=== PATIENT | male | born 1955 | race Caucasian/White ===

== ENCOUNTER 2017-02-11 17:04 | Emergency (ER) | payer MEDICARE ==
[~2017-02-11] VITALS: Ht 203.2 cm; Wt 120.0 kg
[2017-02-11 18:30] LABS: HEMOGLOBIN 16.7 g/dL (13.7-18.0)
[2017-02-11 18:39] LABS: BLOOD UREA NITROGEN 13 mg/dL (7-18)
[2017-02-11 18:42] LABS: ASPARTATE AMINO TRANSFERASE 22 U/L (15-37)
[2017-02-11] MEDS ORDERED: OMNIPAQUE 350 MG/ML, 100ML BOTTLE ONE (22:00)
[2017-02-11] MEDS ORDERED: FUROSEMIDE 40 MG/4 ML IV ONE (23:30)
[2017-02-11] MEDS ORDERED: FUROSEMIDE 40 MG/4 ML ONE (23:55)
[2017-02-12 00:31] VITALS: BP 126/78
== END 2017-02-12 00:38 | disposition home or self-care (01) ==
LOC: ED 22:37
DX: I11.0 Hypertensive heart disease with heart failure (principal); I50.1 Left ventricular failure, unspecified; L97.919 Non-pressure chronic ulcer of unspecified part of right lower leg with unspecified severity; E11.9 Type 2 diabetes mellitus without complications; J45.909 Unspecified asthma, uncomplicated; Z95.1 Presence of aortocoronary bypass graft
CPT/HCPCS: 36415; 71020; 71275; 73590; 80053; 82962; 85025; 93005; 96374; 99285; J1940; Q9967

== ENCOUNTER 2017-03-05 01:02 | Inpatient (IN) | payer MEDICARE ==
[~2017-03-05] VITALS: Ht 203.2 cm; Wt 104.2 kg
[2017-03-05] MEDS ORDERED: INSU100I11 SQ-INSULIN (02:00)
[2017-03-05] MEDS ORDERED: HYDR12.53 PO (02:00)
[2017-03-05] MEDS ORDERED: ALLO300T PO (02:00)
[2017-03-05] MEDS ORDERED: CARV25TA12 PO (02:00)
[2017-03-05] MEDS ORDERED: ONDANSETRON 2MG/ML, 2ML ONE ×2 (02:25→19:02)
[2017-03-05] MEDS ORDERED: HYDROmorphone 1 MG/ML, 1ML ONE (02:25)
[2017-03-05] MEDS ORDERED: SODIUM CHLORIDE 0.9% 1,000ML IVBOLUS ONE (02:30)
[2017-03-05] MEDS ORDERED: ONDANSETRON 2MG/ML, 2ML IVPush ONE (02:30)
[2017-03-05] MEDS ORDERED: HYDROmorphone 1 MG/ML, 1ML IVPush PRN ×2 (02:30→04:00)
[2017-03-05 02:53] LABS: BLOOD UREA NITROGEN 23 mg/dL (7-18)
[2017-03-05] MEDS ORDERED: CLINDAMYCIN PMX 600MG/50ML 50 ML ONE (03:38)
[2017-03-05] MEDS ORDERED: SODIUM CHLORIDE 0.9% 1,000 ML IV ONE (03:42)
[2017-03-05] MEDS ORDERED: CLINDAMYCIN PMX 600MG/50ML 50 ML IV ONE (04:00)
[2017-03-05] MEDS ORDERED: ONDANSETRON 2MG/ML, 2ML IVPush PRN (04:00)
[2017-03-05 04:28] VITALS: BP 103/72
[2017-03-05] MEDS ORDERED: VANCOMYCIN PER PHARMACY MC PRN (04:30)
[2017-03-05] MEDS ORDERED: VANCOMYCIN PMX 1GM/200ML 200 ML IV ONE (04:30)
[2017-03-05] MEDS ORDERED: ONDANSETRON 2MG/ML, 2ML IVP PRN (04:30)
[2017-03-05] MEDS ORDERED: ACETAMINOPHEN 325 MG TABLET PO PRN (04:30)
[2017-03-05] MEDS ORDERED: ENALAPRILAT 1.25 MG/ML, 2ML IVPush PRN (04:30)
[2017-03-05] MEDS ORDERED: BISACODYL 10 MG SUPP PR PRN (04:30)
[2017-03-05] MEDS ORDERED: PHARMACOKINETIC MONITORING MC PRN (05:00)
[2017-03-05] MEDS: PIPERACILLIN/TAZO/PMX 3.375GM 50 ML IV SCH ×4 (05:46→23:52)
[2017-03-05] MEDS: HEPARIN 5,000 UNITS/ML, 1ML SQ SCH ×3 (05:46→23:18)
[2017-03-05] MEDS: HYDROmorphone 2 MG/ML, 1ML IV PRN ×2 (05:56→10:55)
[2017-03-05] MEDS: OXYcodone IR 5MG TABLET PO PRN ×4 (05:56→23:18)
[2017-03-05] MEDS ORDERED: VANCOMYCIN 2,000 MG in SODIUM CHLORIDE 0.9% 500 ML IV ONE (06:00)
[2017-03-05 06:50] VITALS: BP 104/73
[2017-03-05 06:58] LABS: C-REACTIVE PROTEIN, QUANT 4.1 mg/dL (0.02-0.49)
[2017-03-05] MEDS: ALLOPURINOL 300 MG TABLET PO SCH (09:27)
[2017-03-05] MEDS: SENNA/DOCUSATE TABLET PO SCH (09:27)
[2017-03-05] MEDS: INSULIN ASPART 100 UNITS/ML, PEN SQ-INSULIN SCH ×4 (09:28→21:00)
[2017-03-05] MEDS ORDERED: ATEN25TA PO (09:32)
[2017-03-05 11:51] LABS: BLD PARASITE SMEAR NO ORGANISMS SEEN (NONE SEEN); MALARIA RAPID DIAGNOSTIC TEST Negative (Negative)
[2017-03-05 12:10] LABS: BINAX NOW MALARIA OBC PASS (PASS)
[2017-03-05 12:40] VITALS: BP 104/70
[2017-03-05 17:24] VITALS: BP 113/81
[2017-03-05] MEDS ORDERED: BUPIVACAINE/PF 0.5% ONE (18:48)
[2017-03-05] MEDS ORDERED: BUPIVACAINE/PF 0.25% ONE (18:48)
[2017-03-05] MEDS ORDERED: PROPOFOL 10 MG/ML, 20ML ONE (19:02)
[2017-03-05] MEDS ORDERED: SUCCINYLCHOLINE 20 MG/ML, 10ML ONE (19:02)
[2017-03-05 20:15] LABS: CELLS COUNTED 8; DILUTION 1; WBC SQUARES COUNTED 10
[2017-03-05 21:00] VITALS: BP 102/68
[2017-03-06 01:30] VITALS: BP 112/70
[2017-03-06 04:00] VITALS: BP 99/74
[2017-03-06] MEDS: OXYcodone IR 5MG TABLET PO PRN ×4 (05:25→23:51)
[2017-03-06] MEDS: PIPERACILLIN/TAZO/PMX 3.375GM 50 ML IV SCH ×4 (05:27→23:51)
[2017-03-06] MEDS: HEPARIN 5,000 UNITS/ML, 1ML SQ SCH ×4 (06:05→23:51)
[2017-03-06 06:22] LABS: ASPARTATE AMINO TRANSFERASE 17 U/L (15-37); BLOOD UREA NITROGEN 18 mg/dL (7-18)
[2017-03-06] MEDS: VANCOMYCIN 2,000 MG in SODIUM CHLORIDE 0.9% 500 ML IV SCH (06:28)
[2017-03-06 06:51] VITALS: BP 91/64
[2017-03-06] MEDS: INSULIN ASPART 100 UNITS/ML, PEN SQ-INSULIN SCH ×4 (06:58→21:00)
[2017-03-06] MEDS: ALLOPURINOL 300 MG TABLET PO SCH (09:42)
[2017-03-06] MEDS: SENNA/DOCUSATE TABLET PO SCH (09:42)
[2017-03-06 12:59] VITALS: BP 107/69
[2017-03-06] MEDS ORDERED: GADOBUTROL 10 MMOL/10 ML PFS ONE (13:56)
[2017-03-06 22:29] VITALS: BP 106/58
[2017-03-07 02:00] VITALS: BP 112/75
[2017-03-07] MEDS: OXYcodone IR 5MG TABLET PO PRN ×3 (04:14→22:44)
[2017-03-07 06:10] LABS: BLOOD UREA NITROGEN 16 mg/dL (7-18)
[2017-03-07] MEDS: VANCOMYCIN 2,000 MG in SODIUM CHLORIDE 0.9% 500 ML IV SCH ×3 (06:11→19:29)
[2017-03-07] MEDS: PIPERACILLIN/TAZO/PMX 3.375GM 50 ML IV SCH ×3 (06:19→18:14)
[2017-03-07 06:20] LABS: ASPARTATE AMINO TRANSFERASE 20 U/L (15-37)
[2017-03-07] MEDS: INSULIN ASPART 100 UNITS/ML, PEN SQ-INSULIN SCH ×4 (07:00→22:44)
[2017-03-07] MEDS: ALLOPURINOL 300 MG TABLET PO SCH (08:55)
[2017-03-07 09:00] VITALS: BP 129/67
[2017-03-07] MEDS ORDERED: HEPARIN 5,000 UNITS/ML, 1ML IV ONE (09:00)
[2017-03-07] MEDS ORDERED: FUROSEMIDE 40 MG TABLET PO ONE (09:00)
[2017-03-07] MEDS: SENNA/DOCUSATE TABLET PO SCH (09:36)
[2017-03-07] MEDS: ASPIRIN 325 MG TABLET PO SCH (09:37)
[2017-03-07 10:01] VITALS: BP 113/78
[2017-03-07 10:12] LABS: IS PT STATUS REG ER OR PRE ER? NO
[2017-03-07] MEDS: HEPARIN 25,000 UNITS/500ML PMX 500 ML IV PRN (11:51)
[2017-03-07 15:03] LABS: IS PT STATUS REG ER OR PRE ER? NO
[2017-03-07] MEDS ORDERED: SILVER NITRATE STICK TP ONE (16:00)
[2017-03-07 16:13] VITALS: BP 109/76
[2017-03-07] MEDS: CARVEDILOL 3.125 MG TABLET PO SCH (17:26)
[2017-03-07] MEDS: HEPARIN 5,000 UNITS/ML, 1ML IV PRN (19:28)
[2017-03-07 19:42] VITALS: BP 108/70
[2017-03-07 20:37] LABS: IS PT STATUS REG ER OR PRE ER? NO
[2017-03-08] MEDS: PIPERACILLIN/TAZO/PMX 3.375GM 50 ML IV SCH ×4 (00:34→18:19)
[2017-03-08 01:49] VITALS: BP 102/72
[2017-03-08] MEDS: HEPARIN 5,000 UNITS/ML, 1ML IV PRN ×2 (02:23→09:44)
[2017-03-08] MEDS: OXYcodone IR 5MG TABLET PO PRN ×3 (02:49→21:32)
[2017-03-08] MEDS: HEPARIN 25,000 UNITS/500ML PMX 500 ML IV PRN ×2 (05:53→21:39)
[2017-03-08] MEDS: HYDROmorphone 2 MG/ML, 1ML IV PRN (06:03)
[2017-03-08 06:15] VITALS: BP 107/72
[2017-03-08] MEDS: ASPIRIN 325 MG TABLET PO SCH (06:26)
[2017-03-08] MEDS: VANCOMYCIN 2,000 MG in SODIUM CHLORIDE 0.9% 500 ML IV SCH ×2 (07:00→13:26)
[2017-03-08] MEDS: INSULIN ASPART 100 UNITS/ML, PEN SQ-INSULIN SCH ×4 (07:00→21:00)
[2017-03-08 07:51] LABS: BLOOD UREA NITROGEN 16 mg/dL (7-18)
[2017-03-08 08:30] VITALS: BP 100/66
[2017-03-08] MEDS: SENNA/DOCUSATE TABLET PO SCH (08:55)
[2017-03-08] MEDS ORDERED: DIPHENHYDRAMINE 25 MG CAPSULE ONE (08:59)
[2017-03-08] MEDS ORDERED: DIPHENHYDRAMINE 25 MG CAPSULE PO PRN (09:00)
[2017-03-08] MEDS: CARVEDILOL 3.125 MG TABLET PO SCH (09:04)
[2017-03-08] MEDS: ALLOPURINOL 300 MG TABLET PO SCH (09:39)
[2017-03-08] MEDS: IRBESARTAN 150 MG TABLET PO SCH (11:12)
[2017-03-08 16:00] VITALS: BP 107/73
[2017-03-08] MEDS ORDERED: CARVEDILOL 3.125 MG TABLET PO SCH (18:00)
[2017-03-08 19:51] VITALS: BP 89/62
[2017-03-09] MEDS: PIPERACILLIN/TAZO/PMX 3.375GM 50 ML IV SCH ×5 (00:54→23:31)
[2017-03-09 01:34] VITALS: BP 85/51
[2017-03-09] MEDS: OXYcodone IR 5MG TABLET PO PRN ×2 (01:52→21:22)
[2017-03-09] MEDS: HEPARIN 5,000 UNITS/ML, 1ML IV PRN ×2 (02:01→15:37)
[2017-03-09 05:29] LABS: BLOOD UREA NITROGEN 17 mg/dL (7-18)
[2017-03-09] MEDS: ASPIRIN 325 MG TABLET PO SCH (06:20)
[2017-03-09] MEDS: CARVEDILOL 3.125 MG TABLET PO SCH ×3 (06:20→21:18)
[2017-03-09 06:22] VITALS: BP 94/65
[2017-03-09 06:47] VITALS: BP 113/99
[2017-03-09] MEDS: VANCOMYCIN 2,000 MG in SODIUM CHLORIDE 0.9% 500 ML IV SCH (08:37)
[2017-03-09] MEDS: ALLOPURINOL 300 MG TABLET PO SCH (08:41)
[2017-03-09] MEDS: SENNA/DOCUSATE TABLET PO SCH (08:41)
[2017-03-09] MEDS: IRBESARTAN 150 MG TABLET PO SCH (08:41)
[2017-03-09] MEDS: INSULIN ASPART 100 UNITS/ML, PEN SQ-INSULIN SCH ×4 (08:45→21:17)
[2017-03-09] MEDS: HEPARIN 25,000 UNITS/500ML PMX 500 ML IV PRN ×2 (09:59→21:17)
[2017-03-09 13:02] VITALS: BP 90/59
[2017-03-09 16:20] VITALS: BP 99/65
[2017-03-09 19:21] VITALS: BP 122/85
[2017-03-09] MEDS: HYDROmorphone 2 MG/ML, 1ML IV PRN (23:32)
[2017-03-10 01:15] VITALS: BP 98/63
[2017-03-10] MEDS: OXYcodone IR 5MG TABLET PO PRN ×4 (01:36→22:30)
[2017-03-10] MEDS: HYDROmorphone 2 MG/ML, 1ML IV PRN (03:02)
[2017-03-10] MEDS: PIPERACILLIN/TAZO/PMX 3.375GM 50 ML IV SCH ×3 (05:36→18:04)
[2017-03-10] MEDS: ASPIRIN 325 MG TABLET PO SCH (05:36)
[2017-03-10] MEDS: CARVEDILOL 3.125 MG TABLET PO SCH (05:36)
[2017-03-10 06:58] VITALS: BP 91/58
[2017-03-10] MEDS: HEPARIN 25,000 UNITS/500ML PMX 500 ML IV PRN ×2 (08:29→18:17)
[2017-03-10] MEDS: INSULIN ASPART 100 UNITS/ML, PEN SQ-INSULIN SCH ×4 (08:32→22:39)
[2017-03-10] MEDS: SENNA/DOCUSATE TABLET PO SCH (10:17)
[2017-03-10] MEDS: ALLOPURINOL 300 MG TABLET PO SCH (10:24)
[2017-03-10] MEDS: IRBESARTAN 150 MG TABLET PO SCH (10:25)
[2017-03-10 12:30] VITALS: BP 92/58
[2017-03-10] MEDS: CARVEDILOL 6.25 MG TABLET PO SCH (18:00)
[2017-03-10 19:00] VITALS: BP 102/71
[2017-03-11] MEDS: PIPERACILLIN/TAZO/PMX 3.375GM 50 ML IV SCH ×3 (00:23→12:00)
[2017-03-11 00:40] VITALS: BP 100/60
[2017-03-11] MEDS: OXYcodone IR 5MG TABLET PO PRN ×4 (02:34→20:59)
[2017-03-11] MEDS: HEPARIN 25,000 UNITS/500ML PMX 500 ML IV PRN ×2 (04:59→19:31)
[2017-03-11] MEDS: CARVEDILOL 6.25 MG TABLET PO SCH ×2 (06:00→16:42)
[2017-03-11] MEDS: ASPIRIN 325 MG TABLET PO SCH (06:47)
[2017-03-11] MEDS: SENNA/DOCUSATE TABLET PO SCH (08:08)
[2017-03-11 08:09] VITALS: BP 103/74
[2017-03-11] MEDS: ALLOPURINOL 300 MG TABLET PO SCH (08:18)
[2017-03-11] MEDS: IRBESARTAN 150 MG TABLET PO SCH (08:18)
[2017-03-11] MEDS: INSULIN ASPART 100 UNITS/ML, PEN SQ-INSULIN SCH ×4 (08:19→20:41)
[2017-03-11 13:05] VITALS: BP 114/72
[2017-03-11] MEDS: WARFARIN MODERAT DOSE PROTOCOL XX SCH (14:22)
[2017-03-11] MEDS ORDERED: WARFARIN 7.5 MG TABLET PO-COUM ONE (18:30)
[2017-03-11] MEDS ORDERED: ARTIFICIAL TEARS OPHTH SOLN 15ML EACHEYE PRN (20:30)
[2017-03-11 20:31] VITALS: BP 107/69
[2017-03-11] MEDS: AMOXICILLIN/CLAV 875-125MG TABLET PO SCH (20:37)
[2017-03-12] MEDS: OXYcodone IR 5MG TABLET PO PRN ×3 (00:27→20:22)
[2017-03-12 01:14] VITALS: BP 96/59
[2017-03-12 05:30] VITALS: BP 97/66
[2017-03-12] MEDS: HEPARIN 25,000 UNITS/500ML PMX 500 ML IV PRN ×2 (05:31→17:02)
[2017-03-12] MEDS: ASPIRIN 325 MG TABLET PO SCH (05:32)
[2017-03-12] MEDS: CARVEDILOL 6.25 MG TABLET PO SCH ×2 (05:35→17:02)
[2017-03-12 06:10] LABS: BLOOD UREA NITROGEN 13 mg/dL (7-18)
[2017-03-12] MEDS: INSULIN ASPART 100 UNITS/ML, PEN SQ-INSULIN SCH ×4 (07:00→20:22)
[2017-03-12 07:50] VITALS: BP 103/68
[2017-03-12] MEDS: SENNA/DOCUSATE TABLET PO SCH (09:00)
[2017-03-12] MEDS: ALLOPURINOL 300 MG TABLET PO SCH (09:46)
[2017-03-12] MEDS: AMOXICILLIN/CLAV 875-125MG TABLET PO SCH ×2 (09:46→20:13)
[2017-03-12] MEDS: IRBESARTAN 150 MG TABLET PO SCH (09:47)
[2017-03-12] MEDS: WARFARIN MODERAT DOSE PROTOCOL XX SCH (11:38)
[2017-03-12 13:16] VITALS: BP 92/53
[2017-03-12] MEDS ORDERED: WARFARIN 7.5 MG TABLET PO-COUM ONE (18:00)
[2017-03-12 19:04] VITALS: BP 104/74
[2017-03-13 00:57] VITALS: BP 107/74
[2017-03-13] MEDS: OXYcodone IR 5MG TABLET PO PRN ×4 (01:04→21:17)
[2017-03-13] MEDS: HEPARIN 25,000 UNITS/500ML PMX 500 ML IV PRN ×2 (02:34→12:25)
[2017-03-13] MEDS: ASPIRIN 325 MG TABLET PO SCH (06:20)
[2017-03-13] MEDS: CARVEDILOL 6.25 MG TABLET PO SCH ×2 (06:20→17:48)
[2017-03-13 06:30] VITALS: BP 115/80
[2017-03-13] MEDS: IRBESARTAN 150 MG TABLET PO SCH (08:35)
[2017-03-13] MEDS: INSULIN ASPART 100 UNITS/ML, PEN SQ-INSULIN SCH ×4 (08:36→21:26)
[2017-03-13] MEDS: ALLOPURINOL 300 MG TABLET PO SCH (08:36)
[2017-03-13] MEDS: AMOXICILLIN/CLAV 875-125MG TABLET PO SCH ×2 (08:37→21:17)
[2017-03-13] MEDS: SENNA/DOCUSATE TABLET PO SCH (08:37)
[2017-03-13] MEDS: HYDROmorphone 2 MG/ML, 1ML IV PRN (08:52)
[2017-03-13] MEDS: WARFARIN MODERAT DOSE PROTOCOL XX SCH (11:51)
[2017-03-13 13:21] VITALS: BP 114/80
[2017-03-13] MEDS: CIPROFLOXACIN OPHTH SOLN 0.3%, 5ML EACHEYE SCH ×5 (16:00→22:00)
[2017-03-13 17:47] VITALS: BP 112/77
[2017-03-13] MEDS ORDERED: WARFARIN 5 MG TABLET PO-COUM ONE (18:00)
[2017-03-13 18:52] VITALS: BP 90/67
[2017-03-14] MEDS: HEPARIN 25,000 UNITS/500ML PMX 500 ML IV PRN ×3 (01:27→23:46)
[2017-03-14 02:23] VITALS: BP 106/68
[2017-03-14] MEDS: OXYcodone IR 5MG TABLET PO PRN ×4 (02:37→22:14)
[2017-03-14] MEDS: ASPIRIN 325 MG TABLET PO SCH (05:56)
[2017-03-14] MEDS: CARVEDILOL 6.25 MG TABLET PO SCH ×2 (05:56→18:15)
[2017-03-14 06:37] LABS: ANTI-Xa-UNFRACTIONATED HEP 0.35 IU/mL (0.30-0.70)
[2017-03-14 06:48] VITALS: BP 94/60
[2017-03-14] MEDS: INSULIN ASPART 100 UNITS/ML, PEN SQ-INSULIN SCH ×4 (07:00→21:42)
[2017-03-14] MEDS ORDERED: REGADENOSON 0.4 MG/5 ML SYRINGE ONE (08:42)
[2017-03-14] MEDS: CIPROFLOXACIN OPHTH SOLN 0.3%, 5ML EACHEYE SCH ×8 (11:52→22:16)
[2017-03-14] MEDS: ALLOPURINOL 300 MG TABLET PO SCH (11:53)
[2017-03-14] MEDS: IRBESARTAN 150 MG TABLET PO SCH (11:53)
[2017-03-14] MEDS: SENNA/DOCUSATE TABLET PO SCH (11:53)
[2017-03-14] MEDS: AMOXICILLIN/CLAV 875-125MG TABLET PO SCH ×2 (11:53→21:42)
[2017-03-14] MEDS: WARFARIN MODERAT DOSE PROTOCOL XX SCH (12:01)
[2017-03-14 12:59] VITALS: BP 102/73
[2017-03-14] MEDS ORDERED: WARFARIN 7.5 MG TABLET PO-COUM SCH (18:00)
[2017-03-14 18:52] VITALS: BP 95/64
[2017-03-15 01:58] VITALS: BP 97/61
[2017-03-15] MEDS: OXYcodone IR 5MG TABLET PO PRN ×3 (03:02→20:47)
[2017-03-15] MEDS: ASPIRIN 325 MG TABLET PO SCH (06:23)
[2017-03-15] MEDS: CARVEDILOL 6.25 MG TABLET PO SCH (06:23)
[2017-03-15 06:43] LABS: ANTI-Xa-UNFRACTIONATED HEP 0.53 IU/mL (0.30-0.70)
[2017-03-15 06:54] VITALS: BP 106/67
[2017-03-15] MEDS: SENNA/DOCUSATE TABLET PO SCH (09:03)
[2017-03-15] MEDS: AMOXICILLIN/CLAV 875-125MG TABLET PO SCH ×2 (09:04→21:22)
[2017-03-15] MEDS: IRBESARTAN 150 MG TABLET PO SCH (09:04)
[2017-03-15] MEDS: ALLOPURINOL 300 MG TABLET PO SCH (09:04)
[2017-03-15] MEDS: INSULIN ASPART 100 UNITS/ML, PEN SQ-INSULIN SCH ×4 (09:09→21:22)
[2017-03-15] MEDS: CIPROFLOXACIN OPHTH SOLN 0.3%, 5ML EACHEYE SCH ×8 (09:09→22:00)
[2017-03-15] MEDS: HEPARIN 25,000 UNITS/500ML PMX 500 ML IV PRN ×2 (10:30→20:45)
[2017-03-15] MEDS: WARFARIN MODERAT DOSE PROTOCOL XX SCH (11:55)
[2017-03-15 13:06] VITALS: BP 101/68
[2017-03-15] MEDS ORDERED: WARFARIN 10 MG TABLET PO-COUM SCH (18:00)
[2017-03-15 20:00] VITALS: BP 98/63
[2017-03-15] MEDS: CARVEDILOL 3.125 MG TABLET PO SCH (21:23)
[2017-03-16 02:30] VITALS: BP 92/56
[2017-03-16] MEDS: ASPIRIN 325 MG TABLET PO SCH (06:00)
[2017-03-16 07:17] VITALS: BP 106/73
[2017-03-16] MEDS: HEPARIN 25,000 UNITS/500ML PMX 500 ML IV PRN ×2 (07:33→16:38)
[2017-03-16] MEDS: ALLOPURINOL 300 MG TABLET PO SCH (08:11)
[2017-03-16] MEDS: AMOXICILLIN/CLAV 875-125MG TABLET PO SCH ×2 (08:11→20:45)
[2017-03-16] MEDS: SENNA/DOCUSATE TABLET PO SCH (08:11)
[2017-03-16] MEDS: CARVEDILOL 3.125 MG TABLET PO SCH ×2 (08:11→20:45)
[2017-03-16] MEDS: CIPROFLOXACIN OPHTH SOLN 0.3%, 5ML EACHEYE SCH ×9 (08:11→22:00)
[2017-03-16] MEDS: IRBESARTAN 150 MG TABLET PO SCH (08:11)
[2017-03-16] MEDS: INSULIN ASPART 100 UNITS/ML, PEN SQ-INSULIN SCH ×4 (08:12→20:46)
[2017-03-16] MEDS: OXYcodone IR 5MG TABLET PO PRN ×4 (08:21→23:20)
[2017-03-16] MEDS: WARFARIN MODERAT DOSE PROTOCOL XX SCH (12:00)
[2017-03-16 14:16] VITALS: BP 102/68
[2017-03-16] MEDS: POLYETHYLENE GLYCOL 17 GM PACKET PO PRN (16:25)
[2017-03-16] MEDS ORDERED: WARFARIN 7.5 MG TABLET PO-COUM SCH (18:00)
[2017-03-16 21:05] VITALS: BP 93/64
[2017-03-17 00:51] VITALS: BP 97/67
[2017-03-17] MEDS: HYDROmorphone 2 MG/ML, 1ML IV PRN (01:00)
[2017-03-17] MEDS: HEPARIN 25,000 UNITS/500ML PMX 500 ML IV PRN ×3 (04:13→23:03)
[2017-03-17 06:13] LABS: ANTI-Xa-UNFRACTIONATED HEP 0.32 IU/mL (0.30-0.70)
[2017-03-17] MEDS: INSULIN ASPART 100 UNITS/ML, PEN SQ-INSULIN SCH ×4 (07:46→21:09)
[2017-03-17 07:51] VITALS: BP 95/62
[2017-03-17] MEDS: CIPROFLOXACIN OPHTH SOLN 0.3%, 5ML EACHEYE SCH ×8 (08:31→22:00)
[2017-03-17] MEDS: IRBESARTAN 150 MG TABLET PO SCH (08:32)
[2017-03-17] MEDS: AMOXICILLIN/CLAV 875-125MG TABLET PO SCH ×2 (08:32→21:09)
[2017-03-17] MEDS: ASPIRIN 325 MG TABLET PO SCH (08:33)
[2017-03-17] MEDS: CARVEDILOL 3.125 MG TABLET PO SCH ×2 (08:33→21:00)
[2017-03-17] MEDS: ALLOPURINOL 300 MG TABLET PO SCH (08:34)
[2017-03-17] MEDS: SENNA/DOCUSATE TABLET PO SCH (08:34)
[2017-03-17] MEDS: OXYcodone IR 5MG TABLET PO PRN ×3 (09:01→18:13)
[2017-03-17 11:44] LABS: BLOOD UREA NITROGEN 15 mg/dL (7-18)
[2017-03-17] MEDS: WARFARIN MODERAT DOSE PROTOCOL XX SCH (12:00)
[2017-03-17] MEDS: POLYETHYLENE GLYCOL 17 GM PACKET PO PRN (14:42)
[2017-03-17 15:58] VITALS: BP 100/70
[2017-03-17] MEDS ORDERED: WARFARIN 3 MG TABLET PO-COUM SCH (18:00)
[2017-03-17 18:45] VITALS: BP 97/63
[2017-03-17 21:08] VITALS: BP 97/64
[2017-03-18] MEDS: OXYcodone IR 5MG TABLET PO PRN (01:22)
[2017-03-18 02:27] VITALS: BP 102/75
[2017-03-18 05:36] LABS: ANTI-Xa-UNFRACTIONATED HEP 0.48 IU/mL (0.30-0.70)
[2017-03-18] MEDS: INSULIN ASPART 100 UNITS/ML, PEN SQ-INSULIN SCH ×4 (07:00→20:30)
[2017-03-18 07:45] VITALS: BP 92/61
[2017-03-18] MEDS: HEPARIN 25,000 UNITS/500ML PMX 500 ML IV PRN ×2 (09:56→20:25)
[2017-03-18] MEDS: CARVEDILOL 3.125 MG TABLET PO SCH ×2 (11:22→20:31)
[2017-03-18] MEDS: IRBESARTAN 150 MG TABLET PO SCH (11:23)
[2017-03-18] MEDS: ALLOPURINOL 300 MG TABLET PO SCH (11:23)
[2017-03-18] MEDS: SENNA/DOCUSATE TABLET PO SCH (11:23)
[2017-03-18] MEDS: ASPIRIN 325 MG TABLET PO SCH (11:23)
[2017-03-18] MEDS: AMOXICILLIN/CLAV 875-125MG TABLET PO SCH ×2 (11:23→20:30)
[2017-03-18] MEDS: CIPROFLOXACIN OPHTH SOLN 0.3%, 5ML EACHEYE SCH ×8 (11:23→22:00)
[2017-03-18 11:28] VITALS: BP 102/68
[2017-03-18 13:40] VITALS: BP 115/78
[2017-03-18] MEDS: WARFARIN MODERAT DOSE PROTOCOL XX SCH (17:25)
[2017-03-18] MEDS ORDERED: WARFARIN 3 MG TABLET PO-COUM ONE (18:00)
[2017-03-18 20:01] VITALS: BP 92/67
[2017-03-18 20:29] VITALS: BP 94/59
[2017-03-19 01:15] VITALS: BP 90/62
[2017-03-19] MEDS: HEPARIN 25,000 UNITS/500ML PMX 500 ML IV PRN ×2 (06:20→16:22)
[2017-03-19 07:55] VITALS: BP 108/72
[2017-03-19 08:12] VITALS: BP 93/60
[2017-03-19] MEDS: ALLOPURINOL 300 MG TABLET PO SCH (08:27)
[2017-03-19] MEDS: CIPROFLOXACIN OPHTH SOLN 0.3%, 5ML EACHEYE SCH ×9 (08:27→22:00)
[2017-03-19] MEDS: ASPIRIN 325 MG TABLET PO SCH (08:27)
[2017-03-19] MEDS: SENNA/DOCUSATE TABLET PO SCH (08:27)
[2017-03-19] MEDS: AMOXICILLIN/CLAV 875-125MG TABLET PO SCH ×2 (08:27→20:53)
[2017-03-19] MEDS: INSULIN ASPART 100 UNITS/ML, PEN SQ-INSULIN SCH ×4 (08:28→20:54)
[2017-03-19] MEDS: IRBESARTAN 150 MG TABLET PO SCH (08:28)
[2017-03-19] MEDS: CARVEDILOL 3.125 MG TABLET PO SCH ×2 (08:28→20:53)
[2017-03-19] MEDS: OXYcodone IR 5MG TABLET PO PRN ×2 (08:30→13:15)
[2017-03-19] MEDS: SODIUM CHLORIDE 0.9% 1,000 ML IV SCH ×2 (09:28→16:23)
[2017-03-19 14:11] VITALS: BP 101/66
[2017-03-19] MEDS: POLYETHYLENE GLYCOL 17 GM PACKET PO PRN (16:24)
[2017-03-19] MEDS ORDERED: WARFARIN 2 MG TABLET PO-COUM ONE (18:00)
[2017-03-19 19:45] VITALS: BP 106/72
[2017-03-19 20:53] VITALS: BP 109/72
[2017-03-20 01:31] VITALS: BP 125/70
[2017-03-20] MEDS: HEPARIN 25,000 UNITS/500ML PMX 500 ML IV PRN (02:05)
[2017-03-20] MEDS: OXYcodone IR 5MG TABLET PO PRN ×4 (02:06→18:34)
[2017-03-20 06:23] LABS: ANTI-Xa-UNFRACTIONATED HEP 0.51 IU/mL (0.30-0.70)
[2017-03-20] MEDS: SODIUM CHLORIDE 0.9% 1,000 ML IV SCH ×3 (06:29→21:25)
[2017-03-20 08:09] VITALS: BP 103/69
[2017-03-20] MEDS: INSULIN ASPART 100 UNITS/ML, PEN SQ-INSULIN SCH ×4 (08:47→21:00)
[2017-03-20] MEDS: CIPROFLOXACIN OPHTH SOLN 0.3%, 5ML EACHEYE SCH ×8 (08:48→22:00)
[2017-03-20] MEDS: CARVEDILOL 3.125 MG TABLET PO SCH ×2 (08:48→21:00)
[2017-03-20] MEDS: SENNA/DOCUSATE TABLET PO SCH (08:48)
[2017-03-20] MEDS: AMOXICILLIN/CLAV 875-125MG TABLET PO SCH ×2 (08:48→21:25)
[2017-03-20] MEDS: IRBESARTAN 150 MG TABLET PO SCH (08:48)
[2017-03-20] MEDS: ALLOPURINOL 300 MG TABLET PO SCH (08:48)
[2017-03-20] MEDS: ASPIRIN 325 MG TABLET PO SCH (08:48)
[2017-03-20] MEDS ORDERED: CEFAZOLIN 1,000 MG ONE (11:21)
[2017-03-20] MEDS ORDERED: FENTANYL PF 100 MCG/2ML ONE (11:21)
[2017-03-20] MEDS ORDERED: MIDAZOLAM 1 MG/ML, 5ML ONE (11:21)
[2017-03-20] MEDS ORDERED: LIDOCAINE 2%, 20ML ONE (11:21)
[2017-03-20] MEDS ORDERED: DIPHENHYDRAMINE 50 MG/ML, 1ML ONE (11:21)
[2017-03-20] MEDS ORDERED: CEFAZOLIN PMX 1GM/50ML 50 ML ONE (11:21)
[2017-03-20] MEDS: WARFARIN MODERAT DOSE PROTOCOL XX SCH (11:32)
[2017-03-20] MEDS ORDERED: HYDROcodone/APAP 5/325 TABLET PO PRN (13:00)
[2017-03-20] MEDS ORDERED: ZOLPIDEM 5MG TABLET PO PRN (13:00)
[2017-03-20 13:52] VITALS: BP 94/61
[2017-03-20] MEDS ORDERED: WARFARIN 2 MG TABLET PO-COUM ONE (18:00)
[2017-03-20 19:52] VITALS: BP 106/69
[2017-03-20 21:18] VITALS: BP 90/54
[2017-03-20] MEDS: SODIUM CHLORIDE FLUSH 10ML SYR IVF SCH (21:25)
[2017-03-20] MEDS: CEFAZOLIN PMX 1GM/50ML 50 ML IVPB SCH (21:25)
[2017-03-21 02:26] VITALS: BP 107/74
[2017-03-21 02:39] VITALS: BP 109/75
[2017-03-21] MEDS: OXYcodone IR 5MG TABLET PO PRN ×2 (02:39→04:14)
[2017-03-21] MEDS: ASPIRIN 325 MG TABLET PO SCH (04:13)
[2017-03-21] MEDS: SODIUM CHLORIDE 0.9% 1,000 ML IV SCH (04:13)
[2017-03-21] MEDS: CEFAZOLIN PMX 1GM/50ML 50 ML IVPB SCH (04:14)
[2017-03-21 05:58] LABS: BLOOD UREA NITROGEN 14 mg/dL (7-18)
[2017-03-21 06:47] VITALS: BP 97/64
[2017-03-21] MEDS: CIPROFLOXACIN OPHTH SOLN 0.3%, 5ML EACHEYE SCH ×2 (08:00→08:14)
[2017-03-21] MEDS: SODIUM CHLORIDE FLUSH 10ML SYR IVF SCH (08:05)
[2017-03-21] MEDS: IRBESARTAN 150 MG TABLET PO SCH (08:06)
[2017-03-21] MEDS: CARVEDILOL 3.125 MG TABLET PO SCH (08:06)
[2017-03-21] MEDS: INSULIN ASPART 100 UNITS/ML, PEN SQ-INSULIN SCH (08:09)
[2017-03-21] MEDS: ALLOPURINOL 300 MG TABLET PO SCH (08:09)
[2017-03-21] MEDS: SENNA/DOCUSATE TABLET PO SCH (08:10)
[2017-03-21] MEDS: AMOXICILLIN/CLAV 875-125MG TABLET PO SCH (08:10)
[2017-03-21] MEDS ORDERED: INSU100I18 SQ-INSULIN (08:20)
[2017-03-21] MEDS ORDERED: CARV3.1212 PO (08:20)
[2017-03-21] MEDS ORDERED: ATOR10TA PO (08:20)
[2017-03-21] MEDS ORDERED: LISI5TAB7 PO (08:20)
[2017-03-21] MEDS ORDERED: CIPR2.5D EACHEYE (08:20)
[2017-03-21] MEDS ORDERED: IRBE150T49 PO (08:20)
[2017-03-21] MEDS ORDERED: AMOX1TAB12 PO (08:20)
[2017-03-21] MEDS ORDERED: ASPI325T4 PO (08:22)
[2017-03-21] MEDS ORDERED: PNEUMOCOCCAL 23 VACCINE IM-VACC ONE (10:30)
[2017-03-21] MEDS ORDERED: WARFARIN 10 MG TABLET PO-COUM ONE (18:00)
== END 2017-03-21 12:04 | DRG 853 ==
LOC: ED 02:24 → EDIP 03:42 → 4NOR 04:55 → 5SO 03-07 09:57
PROVIDERS: ADMIT Internal Medicine; ATTEND Internal Medicine
PROC: 0S9C3ZX Drainage of Right Knee Joint, Percutaneous Approach, Diagnostic (ICD-10-PCS; 2017-03-05)
PROC: 3E0T3CZ (ICD-10-PCS; 2017-03-05)
PROC: 0KBS0ZZ Excision of Right Lower Leg Muscle, Open Approach (ICD-10-PCS; principal; 2017-03-05 21:30)
PROC: 02H63JZ Insertion of Pacemaker Lead into Right Atrium, Percutaneous Approach (ICD-10-PCS; 2017-03-20)
PROC: 02HK3JZ Insertion of Pacemaker Lead into Right Ventricle, Percutaneous Approach (ICD-10-PCS; 2017-03-20)
PROC: 0JH606Z Insertion of Pacemaker, Dual Chamber into Chest Subcutaneous Tissue and Fascia, Open Approach (ICD-10-PCS; 2017-03-20)
DX: A41.9 Sepsis, unspecified organism (principal); I50.41 Acute combined systolic (congestive) and diastolic (congestive) heart failure; L89.894 Pressure ulcer of other site, stage 4; T87.43 Infection of amputation stump, right lower extremity; L03.115 Cellulitis of right lower limb; D62 Acute posthemorrhagic anemia; D68.69 Other thrombophilia; I13.0 Hypertensive heart and chronic kidney disease with heart failure and stage 1 through stage 4 chronic kidney disease, or unspecified chronic kidney disease; I42.9 Cardiomyopathy, unspecified; I49.5 Sick sinus syndrome; D72.1 Eosinophilia; M10.9 Gout, unspecified; Z23 Encounter for immunization; D63.1 Anemia in chronic kidney disease; E11.22 Type 2 diabetes mellitus with diabetic chronic kidney disease; E11.622 Type 2 diabetes mellitus with other skin ulcer; E11.65 Type 2 diabetes mellitus with hyperglycemia; I25.10 Atherosclerotic heart disease of native coronary artery without angina pectoris; I27.2 Other secondary pulmonary hypertension; I34.0 Nonrheumatic mitral (valve) insufficiency; I37.1 Nonrheumatic pulmonary valve insufficiency; I49.3 Ventricular premature depolarization; J45.909 Unspecified asthma, uncomplicated; N18.2 Chronic kidney disease, stage 2 (mild); W57.XXXA Bitten or stung by nonvenomous insect and other nonvenomous arthropods, initial encounter; T45.515A Adverse effect of anticoagulants, initial encounter; M25.461 Effusion, right knee; Y83.5 Amputation of limb(s) as the cause of abnormal reaction of the patient, or of later complication, without mention of misadventure at the time of the procedure; Z87.891 Personal history of nicotine dependence; Z79.01 Long term (current) use of anticoagulants; Z80.42 Family history of malignant neoplasm of prostate; Z82.49 Family history of ischemic heart disease and other diseases of the circulatory system; Z89.511 Acquired absence of right leg below knee; Z95.1 Presence of aortocoronary bypass graft; Z90.49 Acquired absence of other specified parts of digestive tract; Z88.2 Allergy status to sulfonamides; Z88.5 Allergy status to narcotic agent
CPT/HCPCS: 33208; 36415; 71010; 78452; 80048; 80053; 80061; 80202; 81001; 82040; 82962; 83036; 83735; 84439; 84443; 84484; 85014; 85018; 85025; 85520; 85610; 85651; 86140; 87040; 87070; 87075; 87205; 87207; 89051; 89060; 90732; 93005; 93017; 93306; 93926; 96361; 96365; 96375; A9585; C1779; C1785; C1892; J0690; J1170; J1644; J1815; J2250; J2405; J2543; J2704; J2785; J3010; J3370; J3490; A9502; C9898; J0330; J1200; J7030; J7040

== ENCOUNTER 2017-11-08 14:59 | Inpatient (IN) | payer MEDICARE ==
[~2017-11-08] VITALS: Ht 203.2 cm; Wt 97.9 kg
[~2017-11-08 14:59] MED LIST: ALLO300T PO; AMOX1TAB12 PO; ASPI325T17 PO; ATEN25TA PO; ATOR10TA PO; CARV25TA12 PO; CARV3.1212 PO; CIPR2.5D EACHEYE; HYDR12.53 PO; INSU100I11 SQ-INSULIN; INSU100I18 SQ-INSULIN; IRBE150T49 PO; LISI5TAB7 PO
[2017-11-08] MEDS ORDERED: SODIUM CHLORIDE 0.9% 1,000 ML IV ONE (15:34)
[2017-11-08] MEDS ORDERED: SODIUM CHLORIDE FLUSH 10ML SYR IVF ONE ×2 (16:00)
[2017-11-08] MEDS ORDERED: FUROSEMIDE 40 MG/4 ML IVPush ONE (16:00)
[2017-11-08 16:41] LABS: WHITE BLOOD COUNT 5.2 x10^3/uL (3.4-10)
[2017-11-08 16:54] LABS: ASPARTATE AMINO TRANSFERASE 17 U/L (15-37); BLOOD UREA NITROGEN 19 mg/dL (7-18)
[2017-11-08 17:02] LABS: IS PT STATUS REG ER OR PRE ER? YES
[2017-11-08] MEDS ORDERED: FUROSEMIDE 40 MG/4 ML ONE (17:21)
[2017-11-08] MEDS ORDERED: ASPIRIN 81 MG TABLET CHEW PO ONE (17:30)
[2017-11-08] MEDS ORDERED: ASPIRIN 81 MG TABLET CHEW ONE (17:55)
[2017-11-08] MEDS ORDERED: OMNIPAQUE 350 MG/ML, 100ML BOTTLE ONE (18:01)
[2017-11-08] MEDS ORDERED: DOCUSATE 100 MG CAPSULE PO PRN (20:00)
[2017-11-08] MEDS ORDERED: BISACODYL 10 MG SUPP PR PRN (20:00)
[2017-11-08] MEDS ORDERED: ACETAMINOPHEN 325 MG TABLET PO PRN (20:00)
[2017-11-08] MEDS ORDERED: ENOXAPARIN 100 MG/ML SQ ONE (20:30)
[2017-11-08 20:54] LABS: IS PT STATUS REG ER OR PRE ER? NO
[2017-11-08] MEDS: INSULIN ASPART 100 UNITS/ML, PEN SQ-INSULIN SCH (21:00)
[2017-11-08 23:00] VITALS: BP 120/85
[2017-11-08] MEDS ORDERED: ALBUTEROL/IPRATROPIUM 2.5MG/0.5MG, 3 ML ONE (23:30)
[2017-11-08] MEDS: ALBUTEROL/IPRATROPIUM 2.5MG/0.5MG, 3 ML NPPB SCH (23:35)
[2017-11-09] MEDS: OXYcodone/APAP 10/325MG TABLET PO PRN ×4 (00:35→21:34)
[2017-11-09] MEDS: ENOXAPARIN 100 MG/ML SQ SCH ×2 (00:35→12:48)
[2017-11-09 01:00] VITALS: BP 114/76
[2017-11-09 01:38] LABS: HEMATOCRIT 44.7 % (39.2-51.8); HEMOGLOBIN 14.9 g/dL (13.7-18.0); WHITE BLOOD COUNT 4.7 x10^3/uL (3.4-10)
[2017-11-09 01:48] LABS: ASPARTATE AMINO TRANSFERASE 14 U/L (15-37); BLOOD UREA NITROGEN 18 mg/dL (7-18)
[2017-11-09 02:17] LABS: IS PT STATUS REG ER OR PRE ER? NO
[2017-11-09] MEDS ORDERED: ALBUTEROL/IPRATROPIUM 2.5MG/0.5MG, 3 ML ONE ×2 (04:49→22:56)
[2017-11-09] MEDS: PROMETHAZINE/COD. 10MG/6.25MG/5 ML ORAL SOL PO PRN ×3 (05:41→22:18)
[2017-11-09] MEDS: INSULIN ASPART 100 UNITS/ML, PEN SQ-INSULIN SCH ×4 (07:00→21:00)
[2017-11-09 07:40] VITALS: BP 103/67
[2017-11-09] MEDS ORDERED: MAGNESIUM SULFATE PMX 2GM/50ML 50 ML IV ONE (08:00)
[2017-11-09] MEDS: ALBUTEROL/IPRATROPIUM 2.5MG/0.5MG, 3 ML NPPB SCH ×2 (08:09→12:32)
[2017-11-09] MEDS: IRBESARTAN 150 MG TABLET PO SCH (09:00)
[2017-11-09] MEDS: CARVEDILOL 3.125 MG TABLET PO SCH ×2 (09:00→21:33)
[2017-11-09] MEDS: FUROSEMIDE 20 MG/2 ML IV SCH ×2 (10:16→18:16)
[2017-11-09] MEDS: ALLOPURINOL 300 MG TABLET PO SCH (10:17)
[2017-11-09] MEDS: ASPIRIN 81 MG TABLET EC PO SCH (10:17)
[2017-11-09] MEDS: WARFARIN MODERAT DOSE PROTOCOL XX SCH (12:00)
[2017-11-09 12:35] VITALS: BP 129/89
[2017-11-09] MEDS ORDERED: WARFARIN 7.5 MG TABLET PO-COUM SCH (18:00)
[2017-11-09 20:00] VITALS: BP 109/78
[2017-11-09] MEDS: ATORVASTATIN 10 MG TABLET PO SCH (21:00)
[2017-11-09] MEDS: DOXYCYCLINE 100MG TABLET PO SCH (21:32)
[2017-11-09] MEDS: ALBUTEROL/IPRATROPIUM 2.5MG/0.5MG, 3 ML NPPB PRN (22:55)
[2017-11-10] MEDS: ENOXAPARIN 100 MG/ML SQ SCH ×2 (01:04→11:54)
[2017-11-10] MEDS: PROMETHAZINE/COD. 10MG/6.25MG/5 ML ORAL SOL PO PRN ×3 (02:40→21:05)
[2017-11-10 03:40] VITALS: BP 105/70
[2017-11-10] MEDS: OXYcodone/APAP 10/325MG TABLET PO PRN ×3 (04:01→21:05)
[2017-11-10] MEDS: INSULIN ASPART 100 UNITS/ML, PEN SQ-INSULIN SCH ×4 (07:00→21:05)
[2017-11-10 07:45] VITALS: BP 105/80
[2017-11-10] MEDS: FUROSEMIDE 20 MG/2 ML IV SCH ×2 (08:33→17:04)
[2017-11-10] MEDS: ASPIRIN 81 MG TABLET EC PO SCH (08:34)
[2017-11-10] MEDS: IRBESARTAN 150 MG TABLET PO SCH (08:34)
[2017-11-10] MEDS: ALLOPURINOL 300 MG TABLET PO SCH (08:34)
[2017-11-10] MEDS: DOXYCYCLINE 100MG TABLET PO SCH ×2 (08:34→21:04)
[2017-11-10] MEDS: CARVEDILOL 3.125 MG TABLET PO SCH ×2 (08:34→21:04)
[2017-11-10] MEDS: WARFARIN MODERAT DOSE PROTOCOL XX SCH (12:00)
[2017-11-10] MEDS: ALBUTEROL/IPRATROPIUM 2.5MG/0.5MG, 3 ML NPPB PRN (13:33)
[2017-11-10 14:31] VITALS: BP 113/69
[2017-11-10] MEDS ORDERED: WARFARIN 7.5 MG TABLET PO-COUM ONE (18:00)
[2017-11-10 20:00] VITALS: BP 104/71
[2017-11-10] MEDS: ATORVASTATIN 10 MG TABLET PO SCH (21:00)
[2017-11-11] MEDS: ENOXAPARIN 100 MG/ML SQ SCH ×2 (01:31→12:51)
[2017-11-11] MEDS: PROMETHAZINE/COD. 10MG/6.25MG/5 ML ORAL SOL PO PRN ×2 (01:45→22:48)
[2017-11-11 02:00] VITALS: BP 107/57
[2017-11-11] MEDS: OXYcodone/APAP 10/325MG TABLET PO PRN ×2 (03:55→21:43)
[2017-11-11 05:26] LABS: BLOOD UREA NITROGEN 22 mg/dL (7-18)
[2017-11-11] MEDS ORDERED: MAGNESIUM SULFATE PMX 2GM/50ML 50 ML IV ONE ×2 (08:30)
[2017-11-11 08:34] VITALS: BP 111/76
[2017-11-11] MEDS: INSULIN ASPART 100 UNITS/ML, PEN SQ-INSULIN SCH ×4 (10:17→22:48)
[2017-11-11] MEDS: FUROSEMIDE 20 MG/2 ML IV SCH ×2 (10:18→17:46)
[2017-11-11] MEDS: IRBESARTAN 150 MG TABLET PO SCH (10:19)
[2017-11-11] MEDS: DOXYCYCLINE 100MG TABLET PO SCH ×2 (10:19→21:43)
[2017-11-11] MEDS: CARVEDILOL 3.125 MG TABLET PO SCH ×2 (10:19→21:43)
[2017-11-11] MEDS: ASPIRIN 81 MG TABLET EC PO SCH (10:19)
[2017-11-11] MEDS: ALLOPURINOL 300 MG TABLET PO SCH (12:51)
[2017-11-11] MEDS: WARFARIN MODERAT DOSE PROTOCOL XX SCH (12:53)
[2017-11-11 13:47] VITALS: BP 91/67
[2017-11-11] MEDS: ALBUTEROL/IPRATROPIUM 2.5MG/0.5MG, 3 ML NPPB PRN (16:41)
[2017-11-11] MEDS ORDERED: WARFARIN 7.5 MG TABLET PO-COUM ONE (18:00)
[2017-11-11 19:37] VITALS: BP 108/74
[2017-11-11] MEDS: ATORVASTATIN 10 MG TABLET PO SCH (21:00)
[2017-11-12] MEDS: ENOXAPARIN 100 MG/ML SQ SCH ×2 (00:45→12:19)
[2017-11-12 02:50] VITALS: BP 101/62
[2017-11-12 05:07] LABS: BLOOD UREA NITROGEN 26 mg/dL (7-18)
[2017-11-12 07:38] VITALS: BP 117/73
[2017-11-12] MEDS: FUROSEMIDE 20 MG/2 ML IV SCH ×2 (08:01→17:46)
[2017-11-12] MEDS: INSULIN ASPART 100 UNITS/ML, PEN SQ-INSULIN SCH ×4 (08:01→20:48)
[2017-11-12] MEDS: DOXYCYCLINE 100MG TABLET PO SCH ×2 (08:01→20:46)
[2017-11-12] MEDS: ASPIRIN 81 MG TABLET EC PO SCH (08:01)
[2017-11-12] MEDS: ALLOPURINOL 300 MG TABLET PO SCH (08:01)
[2017-11-12] MEDS: IRBESARTAN 150 MG TABLET PO SCH (08:01)
[2017-11-12] MEDS: CARVEDILOL 3.125 MG TABLET PO SCH ×2 (08:01→20:49)
[2017-11-12] MEDS: WARFARIN MODERAT DOSE PROTOCOL XX SCH (12:16)
[2017-11-12] MEDS: ALBUTEROL/IPRATROPIUM 2.5MG/0.5MG, 3 ML NPPB PRN (12:30)
[2017-11-12 13:50] VITALS: BP 112/65
[2017-11-12] MEDS: OXYcodone/APAP 10/325MG TABLET PO PRN (17:46)
[2017-11-12] MEDS ORDERED: WARFARIN 10 MG TABLET PO-COUM ONE (18:00)
[2017-11-12 19:21] VITALS: BP 95/63
[2017-11-12] MEDS: ATORVASTATIN 10 MG TABLET PO SCH (20:46)
[2017-11-12] MEDS: AMOXICILLIN/CLAV 875-125MG TABLET PO SCH (20:47)
[2017-11-12] MEDS: PROMETHAZINE/COD. 10MG/6.25MG/5 ML ORAL SOL PO PRN (20:48)
[2017-11-13 01:08] VITALS: BP 118/75
[2017-11-13] MEDS: ENOXAPARIN 100 MG/ML SQ SCH ×3 (01:22→23:42)
[2017-11-13 07:12] VITALS: BP 108/67
[2017-11-13] MEDS: FUROSEMIDE 20 MG/2 ML IV SCH ×2 (08:33→18:06)
[2017-11-13] MEDS: ALLOPURINOL 300 MG TABLET PO SCH (08:33)
[2017-11-13] MEDS: DOXYCYCLINE 100MG TABLET PO SCH ×2 (08:33→23:41)
[2017-11-13] MEDS: INSULIN ASPART 100 UNITS/ML, PEN SQ-INSULIN SCH ×4 (08:33→23:41)
[2017-11-13] MEDS: ASPIRIN 81 MG TABLET EC PO SCH (08:33)
[2017-11-13] MEDS: CARVEDILOL 3.125 MG TABLET PO SCH ×2 (08:34→20:30)
[2017-11-13] MEDS: IRBESARTAN 150 MG TABLET PO SCH (08:34)
[2017-11-13] MEDS: AMOXICILLIN/CLAV 875-125MG TABLET PO SCH ×2 (08:34→23:42)
[2017-11-13] MEDS: OXYcodone/APAP 10/325MG TABLET PO PRN ×2 (11:03→18:06)
[2017-11-13] MEDS: WARFARIN MODERAT DOSE PROTOCOL XX SCH (12:00)
[2017-11-13 13:24] VITALS: BP 96/71
[2017-11-13 20:13] VITALS: BP_SYST 86; BP_SYST 87; BP_DIAS 58; BP_DIAS 61
[2017-11-13] MEDS: ATORVASTATIN 10 MG TABLET PO SCH (23:41)
[2017-11-14 02:00] VITALS: BP 100/62
[2017-11-14] MEDS: PROMETHAZINE/COD. 10MG/6.25MG/5 ML ORAL SOL PO PRN ×2 (03:21→10:11)
[2017-11-14 06:29] LABS: BLOOD UREA NITROGEN 26 mg/dL (7-18)
[2017-11-14] MEDS: INSULIN ASPART 100 UNITS/ML, PEN SQ-INSULIN SCH ×4 (08:55→20:41)
[2017-11-14 09:02] VITALS: BP 102/73
[2017-11-14] MEDS: FUROSEMIDE 20 MG/2 ML IV SCH ×2 (10:11→17:19)
[2017-11-14] MEDS: AMOXICILLIN/CLAV 875-125MG TABLET PO SCH ×2 (10:11→20:40)
[2017-11-14] MEDS: CARVEDILOL 3.125 MG TABLET PO SCH ×2 (10:12→20:39)
[2017-11-14] MEDS: ALLOPURINOL 300 MG TABLET PO SCH (10:12)
[2017-11-14] MEDS: DOXYCYCLINE 100MG TABLET PO SCH ×2 (10:12→20:40)
[2017-11-14] MEDS: ASPIRIN 81 MG TABLET EC PO SCH (10:12)
[2017-11-14] MEDS: IRBESARTAN 150 MG TABLET PO SCH (10:13)
[2017-11-14] MEDS: WARFARIN MODERAT DOSE PROTOCOL XX SCH (12:00)
[2017-11-14] MEDS: ENOXAPARIN 100 MG/ML SQ SCH (13:36)
[2017-11-14] MEDS ORDERED: OXYC1TAB9 PO (14:45)
[2017-11-14] MEDS ORDERED: DOCU-131 PO (14:45)
[2017-11-14] MEDS ORDERED: AMOX1TAB12 PO (14:45)
[2017-11-14] MEDS ORDERED: ASPI-621 PO (14:45)
[2017-11-14] MEDS ORDERED: IPRA3AMP NPPB (14:45)
[2017-11-14] MEDS ORDERED: FURO40TA6 PO (14:45)
[2017-11-14] MEDS ORDERED: WARF7.5T PO (14:45)
[2017-11-14 15:20] VITALS: BP 99/67
[2017-11-14] MEDS ORDERED: POTA20TA14 PO (15:27)
[2017-11-14] MEDS: ONDANSETRON ODT 4 MG PO PRN (15:50)
[2017-11-14] MEDS ORDERED: WARFARIN 10 MG TABLET PO-COUM ONE (18:00)
[2017-11-14 19:31] VITALS: BP_SYST 85; BP_SYST 98; BP_DIAS 56; BP_DIAS 65
[2017-11-14 20:39] VITALS: BP 95/63
[2017-11-14] MEDS: ATORVASTATIN 10 MG TABLET PO SCH (20:41)
[2017-11-14] MEDS: OXYcodone/APAP 10/325MG TABLET PO PRN (20:41)
[2017-11-15] MEDS: ENOXAPARIN 100 MG/ML SQ SCH (00:51)
[2017-11-15 02:00] VITALS: BP_SYST 88; BP_SYST 89; BP_DIAS 60; BP_DIAS 67
[2017-11-15] MEDS: INSULIN ASPART 100 UNITS/ML, PEN SQ-INSULIN SCH (07:00)
[2017-11-15] MEDS ORDERED: WARFARIN 5 MG TABLET PO-COUM ONE (08:00)
[2017-11-15 08:39] VITALS: BP 108/71
[2017-11-15] MEDS: FUROSEMIDE 20 MG/2 ML IV SCH (09:15)
[2017-11-15] MEDS: AMOXICILLIN/CLAV 875-125MG TABLET PO SCH (09:15)
[2017-11-15] MEDS: ASPIRIN 81 MG TABLET EC PO SCH (09:15)
[2017-11-15] MEDS: DOXYCYCLINE 100MG TABLET PO SCH (09:15)
[2017-11-15] MEDS: ALLOPURINOL 300 MG TABLET PO SCH (09:15)
[2017-11-15] MEDS: CARVEDILOL 3.125 MG TABLET PO SCH (09:15)
[2017-11-15] MEDS: IRBESARTAN 150 MG TABLET PO SCH (09:15)
[2017-11-15] MEDS: ONDANSETRON ODT 4 MG PO PRN (11:05)
[2017-11-15] MEDS ORDERED: WARFARIN 7.5 MG TABLET PO-COUM ONE (18:00)
== END 2017-11-15 12:00 | disposition home or self-care (01) | DRG 292 ==
LOC: ED 17:23 → EDIP 20:37 → 4WST 20:41
PROVIDERS: ADMIT Surgery; ATTEND Surgery
DX: I11.0 Hypertensive heart disease with heart failure (principal); D68.59 Other primary thrombophilia; I27.82 Chronic pulmonary embolism; E44.0 Moderate protein-calorie malnutrition; E11.622 Type 2 diabetes mellitus with other skin ulcer; I08.1 Rheumatic disorders of both mitral and tricuspid valves; I48.92 Unspecified atrial flutter; I48.2 Chronic atrial fibrillation; L97.919 Non-pressure chronic ulcer of unspecified part of right lower leg with unspecified severity; I50.23 Acute on chronic systolic (congestive) heart failure; B95.61 Methicillin susceptible Staphylococcus aureus infection as the cause of diseases classified elsewhere; I25.10 Atherosclerotic heart disease of native coronary artery without angina pectoris; I25.5 Ischemic cardiomyopathy; J44.9 Chronic obstructive pulmonary disease, unspecified; M1A.9XX0 Chronic gout, unspecified, without tophus (tophi); Z79.01 Long term (current) use of anticoagulants; Z89.511 Acquired absence of right leg below knee; Z95.1 Presence of aortocoronary bypass graft; Z95.810 Presence of automatic (implantable) cardiac defibrillator; Z68.23 Body mass index [BMI] 23.0-23.9, adult; Z88.5 Allergy status to narcotic agent; Z88.2 Allergy status to sulfonamides; Z88.8 Allergy status to other drugs, medicaments and biological substances; Z91.018 Allergy to other foods
CPT/HCPCS: 36415; 71010; 71275; 80048; 80053; 80061; 82962; 83036; 83735; 83880; 84100; 84436; 84443; 84484; 85025; 85379; 85610; 87040; 87070; 87077; 87186; 87205; 93005; 93306; 93970; 94640; 96374; J1650; J1815; J1940; J7620; Q0162; Q9967; J3475; J7030